=== PATIENT | male | born 1950 | race Caucasian/White ===

== ENCOUNTER 2018-12-14 12:41 | Emergency (ER) | payer OTHER ==
[2018-12-14] MEDS ORDERED: CYCLOBENZAPRINE 10 MG TAB ONE (16:08)
[2018-12-14] MEDS ORDERED: KETOROLAC 30 MG/ML INJ ONE (16:09)
[2018-12-14] MEDS ORDERED: HYDROCODONE/APAP 10/325 TAB ONE (16:09)
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
== END 2018-12-14 17:10 | disposition home or self-care (01) ==
LOC: ER 12:41
DX: M54.41 Lumbago with sciatica, right side (principal)
CPT/HCPCS: 96372; 99283

== ENCOUNTER 2018-12-31 15:23 | Emergency (ER) | payer OTHER ==
[2018-12-31] MEDS ORDERED: NA CHLORIDE 0.9% 0 ML ONE (15:52)
[2018-12-31] MEDS ORDERED: FOLIC ACID 1 MG, MULTIVITAMINS INJ 10 ML, THIAMINE HCL 100 MG in NA CHLORIDE 0.9% 1,000 ML IV SCH (16:00)
[2018-12-31 16:07] LABS: Absolute Lymphocytes (CBC) 2.1 K/uL (0.7-4.9); Absolute Monocytes 0.8 K/uL (0.1-1.3); Absolute Neutrophil 4.1 K/uL (1.8-8.0); Basophils % 1.1 % (0-1.3); Eosinophils % 1.2 % (0-4.4); Hematocrit 33.9 % (39.6-49.0); Lymphocytes % 29.1 % (15.3-44.8); Monocytes % 10.7 % (3.3-12.3); RBC Red Blood Cell Count 3.87 M/uL (4.33-5.43)
[2018-12-31 16:30] LABS: Potassium 2.8 mmol/L (3.5-5.1)
[2018-12-31] MEDS ORDERED: KCL 20 MEQ/100 mL IVPB 20 MEQ/100 ML BAG IV ONE (16:50)
[2018-12-31] MEDS ORDERED: POTASSIUM CL SA 10 MEQ TAB PO ONE (16:50)
--- NOTE | 2018-12-31 17:11 | RAD REPORT ---
EXAM DESCRIPTION: CT - Head Brain Wo Cont - 12/31/2018 4:42 pm CLINICAL HISTORY: Transient alteration of awareness COMPARISON: None. TECHNIQUE: Axial 5 mm thick images of the head were obtained without IV contrast. All CT scans are performed using dose optimization technique as appropriate and may include automated exposure control or mA/KV adjustment according to patient size. FINDINGS: No intracranial hemorrhage, mass, edema or shift of mid-line structures. No acute infarcti on changes seen. Mild atrophy and chronic ischemic changes are present. Ventricles are normal. Asymme try is created by head tilt. Arterial and physiologic calcifications are present. Mastoid air cells and visualized portions of the paranasal sinuses are clear. No acute bony findings. IMPRESSION: Mild atrophy and chronic ischemic change. No acute intracranial finding.
[2018-12-31] MEDS ORDERED: NALOXONE 0.4 MG/ML VIAL ONE (18:42)
[2018-12-31] MEDS ORDERED: NA CHLORIDE 0.9% 1,000 ML ONE (18:47)
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
--- NOTE | 2019-01-01 09:55 | EKG ---
Test Date: 2018-12-31 Test Time: 15:45:24 [employer]wn Shop Keeper: LUISITO MEASUREMENT RESULTS: Intervals: Rate: 86 OK: 168 QRSD: 98 QT: 376 QTc: 449 [place]: P: 64 OK: 168 QRS: 23 T: 52 INTERPRETIVE STATEMENTS: Normal sinus rhythm Normal ECG No previous ECG available for comparison Electronically Signed On 01-01-19 09:54:46 CDT by Manuel Perkins
== END 2018-12-31 20:51 | disposition home or self-care (01) ==
LOC: ER 15:23
DX: E86.0 Dehydration (principal); T67.5XXA Heat exhaustion, unspecified, initial encounter; E87.6 Hypokalemia; F20.9 Schizophrenia, unspecified
CPT/HCPCS: 96365; 93005; 85025; 80048; 36415; 82550; 70450; 96375; 99291; 96366; J3411; J2310; J7030 ×2